=== PATIENT | female | born 1975 | race African-American/Black ===

== ENCOUNTER 2017-01-03 09:41 | Emergency (ER) | payer OTHER, MEDICAID ==
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
== END 2017-01-03 10:44 | disposition left against medical advice (07) ==
LOC: DL.ED 09:41
DX: Z53.21 Procedure and treatment not carried out due to patient leaving prior to being seen by health care provider (principal)

== ENCOUNTER → 2017-06-17 | Day surgery (SDC) | payer MEDICAID ==
[~2017-06-17] MED LIST: Bupivacaine 0.5% 10 ML SDV INJECT ONE; Bupivacaine 0.5% 10 ML SDV ONE; Clindamycin Phosphate 600 MG in Sodium Chloride 0.9% 100 ML IV ONE; Clindamycin Phosphate 600 MG/4 ML SDV ONE; Dexamethasone 4 MG/ML SDV IV ONE; Lactated Ringers 1,000 ML IV SCH; Lidocaine 1% 30 ML SDV INJECT ONE; Lidocaine 1% 30 ML SDV ONE; Midazolam 1 MG/ML 2 ML SDV IV ONE; Ondansetron 4 MG/2 ML SDV IV ONE; Propofol 200 MG/20 ML SDV IV ONE; Sodium Chloride 0.9% 10 ML Syringe FLUSH PRN; Sodium Chloride 0.9% 100 ML ONE; fentaNYL 100 MCG/2 ML SDV IV ONE
--- NOTE | 2017-06-17 11:45 | PCM.OPNOTE ---
- General Post-Op/Procedure Note Date of Surgery/Procedure: 06/17/17 Operative Procedure(s): left foot open plantar fasciectomy with bone spur excision Pre Op Diagnosis: left foot planatar fasciitis/heel spur Post-Op Diagnosis: sarahi Anesthesia Technique: Local, MAC Primary Surgeon: Jovanna Granda Anesthesia Provider: Jessee Cohn EBL in mLs: 5 Complications: none Condition: Good Free Text/Narrative:: Pt tolerated procedure well and was transported to recovery with vascular status intact to left foot. TT 42 mins. Well padded L&U split applied with foot in dorsiflexion.
[2017-06-17 12:22] VITALS: BP 120/78
--- NOTE | 2017-06-17 23:27 | OR ---
DATE: 06/17/2017 PREOPERATIVE DIAGNOSIS: Left foot plantar fasciitis with bone spur. POSTOPERATIVE DIAGNOSIS: Left foot plantar fasciitis with bone spur. PROCEDURE PERFORMED: Left foot open plantar fasciectomy with bone spur excision. ANESTHESIA: Local MAC with preoperative local block of 10 mL of a 1:1 mixture of 1% lidocaine plain and 0.5% Marcaine plain. TOURNIQUET TIME: 42 minutes, pneumatic ankle tourniquet. ESTIMATED BLOOD LOSS: Minimal. SPECIMENS REMOVED: None. COMPLICATIONS: None. INDICATIONS: Elidia is a 41-year-old female who returns for left heel pain and heel spur. I have been seeing her for many months now for the heel pain. We have tried many different treatment options including stretching, icing, inserts, physical therapy, injections, and immobilization in a Cam boot with no relief. She is still having significant pain in the left plantar heel. She has failed conservative options and at this point would like to go ahead with the surgical correction of this. X-rays of the left calcaneus reveal plantar bone spur, no signs of fracture. The patient voiced good understanding of the proposed procedure and possible complications and elects to have surgery at this time. DESCRIPTION OF PROCEDURE: The patient was taken to the operating room, lying in supine position. After adequate anesthesia induction as described above, the left foot was prepped and draped in the usual sterile fashion. A pneumatic ankle tourniquet was inflated to 225 mmHg. Attention was then directed to the instep just distal to the calcaneus, where an approximately 4 cm transverse incision was made at the plantar aspect of the foot to gain access to the plantar fascia band and plantar heel spur. Sharp and blunt dissection were performed down to the level of the medial and central band of the plantar fascia. An approximately 1 cm2 section of the plantar fascia band was resected from the foot, this was from the central and medial portion. Inspection of the site revealed no further tightness of the plantar fascia in this area. The bone spur was then palpated, and a rongeur was used to remove the bone spur, a bone rasp was also used in this area to rasp down the sharp edges of the spur. A fluoroscopy was used to verify adequate resection of the bone spur. The area was then flushed with a copious amounts of normal saline. Deep closure was completed with 3-0 Vicryl, and skin closure was completed with 4-0 nylon. The area was dressed with Xeroform to the incision site, fluffs, Webril, and a well- padded posterior splint with the foot in slight dorsiflexion. The patient tolerated the anesthesia and the procedure well and left the operating room for recovery with vital signs stable and in good condition with vascular status intact to the left foot as noted by immediate hyperemia upon deflation of the tourniquet. Total tourniquet time was 42 minutes. The patient was then discharged home when she met hospital discharge requirements. [facility] /[id number]
== END ==
LOC: DL.SDS 07:19
PROVIDERS: ATTEND Podiatrist
DX: M72.2 Plantar fascial fibromatosis (principal); M76.9 Unspecified enthesopathy, lower limb, excluding foot; I10 Essential (primary) hypertension; F41.9 Anxiety disorder, unspecified; F32.9 Major depressive disorder, single episode, unspecified; Z68.32 Body mass index [BMI] 32.0-32.9, adult; Z90.49 Acquired absence of other specified parts of digestive tract; Z98.51 Tubal ligation status; Z79.82 Long term (current) use of aspirin; Z79.899 Other long term (current) drug therapy; Z88.0 Allergy status to penicillin; Z88.8 Allergy status to other drugs, medicaments and biological substances; Z79.2 Long term (current) use of antibiotics
CPT/HCPCS: 28119; J1100; J2250; J2405; J2704; J3010; J7050; J7120; 01470; S0077

== ENCOUNTER 2017-10-16 04:02 | Emergency (ER) | payer MEDICAID ==
[2017-10-16] MEDS ORDERED: LORazepam 1 MG Tab PO ONE (04:03)
[2017-10-16] MEDS ORDERED: GI Cocktail Oral Solution 30 ML PO ONE (04:17)
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
[2017-10-16] MEDS ORDERED: Nitroglycerin 0.4 MG Tab.SL SL ONE (04:35)
[2017-10-16 04:38] LABS: ANION GAP 8.6; CHLORIDE,CL 104 mmol/L (101-111); SODIUM,NA 136 mmol/L (135-145)
[2017-10-16 04:40] VITALS: BP 135/91
[2017-10-16] MEDS ORDERED: LORazepam 2 MG/ML Syringe IVPUSH ONE (04:49)
[2017-10-16] MEDS ORDERED: LORazepam 1 MG Tab ONE (05:00)
--- NOTE | 2017-10-19 14:00 | EKG ---
10/16/2017- RIDGE CAMERON - FINDINGS: EKG, per my reading, shows sinus rhythm at the rate of 95. [facility] /[id number]
== END 2017-10-16 05:09 | disposition home or self-care (01) ==
LOC: DL.ED 04:02
DX: R07.89 Other chest pain (principal); F41.9 Anxiety disorder, unspecified; I10 Essential (primary) hypertension; J45.909 Unspecified asthma, uncomplicated; F17.210 Nicotine dependence, cigarettes, uncomplicated; Z88.5 Allergy status to narcotic agent; Z88.8 Allergy status to other drugs, medicaments and biological substances; Z88.0 Allergy status to penicillin; Z79.899 Other long term (current) drug therapy
CPT/HCPCS: 36415; 80053; 84484; 85025; 85379; 93005; 99285; A9270

== ENCOUNTER 2017-11-11 17:04 | Emergency (ER) | payer MEDICAID ==
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
[2017-11-11 18:11] LABS: CHLORIDE,CL 104 mmol/L (101-111); SODIUM,NA 135 mmol/L (135-145)
[2017-11-11] MEDS ORDERED: Sodium Chloride 0.9% 1,000 ML IV ONE (18:17)
[2017-11-11] MEDS ORDERED: Acetaminophen/HYDROcodone 325-10 MG Tab PO ONE (18:46)
[2017-11-11 19:16] VITALS: BP 134/90
== END 2017-11-11 19:10 | disposition home or self-care (01) ==
LOC: DL.ED 17:04
DX: N83.209 Unspecified ovarian cyst, unspecified side (principal); I10 Essential (primary) hypertension; Z88.5 Allergy status to narcotic agent; Z88.0 Allergy status to penicillin; Z79.82 Long term (current) use of aspirin; Z79.899 Other long term (current) drug therapy
CPT/HCPCS: 36415; 74176; 80053; 80305; 81001; 85025; 99284; A9270; J7030

== ENCOUNTER 2017-12-01 20:50 | Emergency (ER) | payer MEDICAID ==
[2017-12-01 21:33] VITALS: BP 145/101
[2017-12-01] MEDS ORDERED: Butorphanol 2 MG/ML SDV IM ONE (22:14)
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
[2017-12-01] MEDS ORDERED: Ondansetron 4 MG Tab.DIS PO ONE (23:20)
== END 2017-12-01 23:35 | disposition home or self-care (01) ==
LOC: DL.ED 20:50
DX: M54.5 Low back pain (principal); M62.830 Muscle spasm of back; I10 Essential (primary) hypertension; F17.210 Nicotine dependence, cigarettes, uncomplicated; Z88.5 Allergy status to narcotic agent; Z88.0 Allergy status to penicillin; Z88.8 Allergy status to other drugs, medicaments and biological substances; Z79.899 Other long term (current) drug therapy
CPT/HCPCS: 96372; 99282; J0595

== ENCOUNTER 2017-12-29 14:31 | Emergency (ER) | payer MEDICAID ==
[2017-12-29 15:01] VITALS: BP 141/103
[2017-12-29] MEDS: Cyclobenzaprine 10 MG Tab PO ONE (15:44)
[2017-12-29] MEDS: Ketorolac 30 MG/ML SDV IM ONE (15:45)
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
== END 2017-12-29 16:05 | disposition home or self-care (01) ==
LOC: DL.ED 14:31
DX: S93.401A Sprain of unspecified ligament of right ankle, initial encounter (principal); S66.911A Strain of unspecified muscle, fascia and tendon at wrist and hand level, right hand, initial encounter; S40.011A Contusion of right shoulder, initial encounter; M54.5 Low back pain; M75.31 Calcific tendinitis of right shoulder; M23.51 Chronic instability of knee, right knee; J45.909 Unspecified asthma, uncomplicated; I10 Essential (primary) hypertension; Z88.6 Allergy status to analgesic agent; Z88.0 Allergy status to penicillin; Z79.82 Long term (current) use of aspirin; Z79.899 Other long term (current) drug therapy; Z88.5 Allergy status to narcotic agent; W10.9XXA Fall (on) (from) unspecified stairs and steps, initial encounter
CPT/HCPCS: 73030; 73110; 73560; 73610; 96372; 99284; A9270; J1885

== ENCOUNTER 2018-03-01 06:44 | Emergency (ER) | payer MEDICAID ==
[2018-03-01 06:53] VITALS: BP 141/82
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
[2018-03-01 07:24] LABS: ANION GAP 10.3; CHLORIDE,CL 103 mmol/L (101-111); SODIUM,NA 137 mmol/L (135-145)
== END 2018-03-01 08:06 | disposition home or self-care (01) ==
LOC: DL.ED 06:44
DX: R07.89 Other chest pain (principal); E87.6 Hypokalemia; I10 Essential (primary) hypertension; J45.909 Unspecified asthma, uncomplicated; F17.210 Nicotine dependence, cigarettes, uncomplicated; Z88.5 Allergy status to narcotic agent; Z88.0 Allergy status to penicillin; Z79.899 Other long term (current) drug therapy; Z79.82 Long term (current) use of aspirin
CPT/HCPCS: 36415; 71045; 80053; 84484; 85025; 85379; 93005; 99285

== ENCOUNTER 2018-03-31 07:11 | Day surgery (SDC) | payer MEDICAID ==
[~2018-03-31 07:11] MED LIST changes: -Bupivacaine 0.5% 10 ML SDV INJECT ONE; -Bupivacaine 0.5% 10 ML SDV ONE; -Clindamycin Phosphate 600 MG in Sodium Chloride 0.9% 100 ML IV ONE; -Clindamycin Phosphate 600 MG/4 ML SDV ONE; -Dexamethasone 4 MG/ML SDV IV ONE; -Lactated Ringers 1,000 ML IV SCH; -Lidocaine 1% 30 ML SDV INJECT ONE; -Lidocaine 1% 30 ML SDV ONE; -Midazolam 1 MG/ML 2 ML SDV IV ONE; +Midazolam 1 MG/ML 2 ML SDV ONE; -Ondansetron 4 MG/2 ML SDV IV ONE; -Propofol 200 MG/20 ML SDV IV ONE; -Sodium Chloride 0.9% 100 ML ONE; -fentaNYL 100 MCG/2 ML SDV IV ONE; +fentaNYL 100 MCG/2 ML SDV ONE
[2018-03-31] MEDS ORDERED: fentaNYL 100 MCG/2 ML SDV IV ONE (07:12)
[2018-03-31] MEDS ORDERED: Midazolam 1 MG/ML 2 ML SDV IV ONE (07:12)
[2018-03-31] MEDS: Dextrose 5%-0.45% NaCl 1,000 ML IV SCH (07:45)
[2018-03-31] MEDS: fentaNYL 100 MCG/2 ML SDV IV ONE ×3 (07:45→07:57)
[2018-03-31] MEDS: Midazolam 1 MG/ML 2 ML SDV IV ONE ×6 (07:47→07:55)
--- NOTE | 2018-03-31 08:41 | OR ---
DATE: 03/31/2018 PROCEDURE PERFORMED: Total colonoscopy. INSTRUMENT USED: PCF-H180 AL Olympus video colonoscope. PREMEDICATIONS: Fentanyl 125 mcg intravenous, Versed 4 mg intravenous. The procedure was done under pulse oximetry, BP recording, and school lunch monitor. INDICATION: The patient with persistent abdominal pain and alternating constipation and diarrhea unexplained and not responsive to medical measures. Colonoscopic examination is done for detection of any polypoid lesions and removal, endoscopic hemostasis therapy if needed. Initial rectal exam was unremarkable. Rigid anoscopy was normal. DESCRIPTION OF PROCEDURE: The colonoscope was passed with ease up to the ileocecal area. Photographs were taken of the normal-appearing cecum, identified by double-bulged ileocecal folds. No bleeding was noted from any of the visualized areas at the commencement of the examination. There was large amount of fecal material that had to be aspirated. No stricture. No vascular ectasia. No large or isolated ulcerations seen. No evidence of diffuse inflammatory bowel disease in the form of friability, contact bleeding, or ulcerations. No polyp or tumor mass identified. Probing the proximal sides of folds and flexures, using adequate distention and clearing up the stool material, withdrawal of the scope was made, cecum to rectum time over 6 minutes. No bleeding was noted from any of the visualized areas at the completion of examination. IMPRESSION: Normal study. The patient tolerated the procedure well. [facility] /[id number]
[2018-03-31 10:43] VITALS: BP 138/56
== END 2018-03-31 10:10 | disposition home or self-care (01) ==
LOC: DL.ENDO 07:11
PROVIDERS: ATTEND Internal Medicine Gastroenterology
DX: R10.9 Unspecified abdominal pain (principal); R19.7 Diarrhea, unspecified; K59.00 Constipation, unspecified; F17.210 Nicotine dependence, cigarettes, uncomplicated; E66.09 Other obesity due to excess calories; Z68.36 Body mass index [BMI] 36.0-36.9, adult; Z88.0 Allergy status to penicillin; Z88.5 Allergy status to narcotic agent; Z88.6 Allergy status to analgesic agent; Z79.82 Long term (current) use of aspirin
CPT/HCPCS: J2250; J3010; J7042

== ENCOUNTER 2018-07-14 10:37 | Emergency (ER) | payer MEDICAID ==
[2018-07-14 12:08] VITALS: BP 151/101
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
[2018-07-14 13:32] LABS: ANION GAP 13.1; CHLORIDE,CL 100 mmol/L (101-111); SODIUM,NA 134 mmol/L (135-145)
--- NOTE | 2018-07-14 13:41 | CT ---
Clinical history: 42-year-old 213 pound female smoker with hematuria and left flank pain. TECHNIQUE: Volume acquisition of data emergency unenhanced CT scan of the abdomen and pelvis (kidneys/ureters/bladder) obtained without oral or IV contrast while patient was lying supine on the Siemens multi slice scanner [facility]. All data archived in the PAC system for storage, reformatting axial/sagittal/coronal planes and study. Interpretation: Abnormal. 1. *Isolated tiny (less than 1 mm) calculus distal left ureter near the urinary bladder trigone (axial scan image #131; coronal image #42; and sagittal image #45). 2. Asymmetrically larger left kidney with mild pyelocaliectasis. No other signs of urolithiasis. No obstructive uropathy on the right. 3. Gallbladder, unenhanced liver, stomach, spleen, pancreas and adrenal glands unremarkable. 4. 3 cm diameter left ovarian cyst and small cyst right ovary. No other pelvic/abdominal mass lesion and no signs of retroperitoneal lymphadenopathy, inflammatory "dirty" peritoneal fat, mechanical bowel obstruction, ascites, or free intraperitoneal air. 5. Normal heart. Lung bases clear. CONCLUSION:: Minimally obstructing distal left ureterolith (see above)
== END 2018-07-14 13:53 | disposition home or self-care (01) ==
LOC: DL.ED 10:37
DX: N20.2 Calculus of kidney with calculus of ureter (principal); J45.909 Unspecified asthma, uncomplicated; F41.9 Anxiety disorder, unspecified; F32.9 Major depressive disorder, single episode, unspecified; F17.210 Nicotine dependence, cigarettes, uncomplicated; Z88.5 Allergy status to narcotic agent; Z88.0 Allergy status to penicillin; Z88.6 Allergy status to analgesic agent; Z79.899 Other long term (current) drug therapy
CPT/HCPCS: 36415; 74176; 80048; 81001; 85025; 99284